=== PATIENT | male | born 2005 | race Hispanic/Latino ===

== ENCOUNTER 2024-05-09 16:32 | Emergency (ER) | payer MEDICAID, OTHER ==
[~2024-05-09] VITALS: Ht 165.1 cm; Wt 68.0 kg
[2024-05-09 16:36] VITALS: BP 116/75; PULSE 90; RESP 18
== END 2024-05-09 17:10 | disposition left against medical advice (07) ==
LOC: EDH 16:32
DX: Z66 Do not resuscitate (principal); Z53.21 Procedure and treatment not carried out due to patient leaving prior to being seen by health care provider

== ENCOUNTER 2024-11-08 08:38 | Emergency (ER) | payer BC, MEDICAID ==
[~2024-11-08] VITALS: Ht 165.1 cm; Wt 67.1 kg
[2024-11-08 09:11] LABS: RAPID GROUP A STREP negative (NEGATIVE)
[2024-11-08 09:19] LABS: APPEARANCE,URINE CLOUDY (CLEAR); BILIRUBIN,URINE 0.5 mg/dL (NEGATIVE); COLOR,URINE YELLOW (YELLOW); GLUCOSE, URINE (UA) NEGATIVE (NEGATIVE); KETONES,URINE 100 mg/dL (NEGATIVE); LEUKOCYTE ESTERASE ,URINE NEGATIVE Leu/uL (NEGATIVE); NITRATE,URINE NEGATIVE (NEGATIVE); OCCULT BLOOD,URINE NEGATIVE (NEGATIVE); PROTEIN,URINE 100 mg/dL (NEGATIVE); UROBILINOGEN,URINE 3 mg/dL (0.2-1.0)
[2024-11-08 09:22] LABS: ADD UA MICROSCOPIC YES
[2024-11-08 09:26] LABS: INFLUENZA TYPE B Negative For Type B (NEGATIVE)
[2024-11-08 09:35] LABS: COVID19 (SARS ANTIGEN RAPID) PRESUMPTIVE NEGATIVE (NEGATIVE)
[2024-11-08 09:38] LABS: INFLUENZA TYPE A Positive For Type A (NEGATIVE)
[2024-11-08 09:48] LABS: BACTERIA,URINE RARE /HPF (None Seen); MUCUS,URINE MOD LPF (None Seen); SQUAMOUS EPITHELIAL CELL,UR RARE /HPF (0-2)
[2024-11-08] MEDS: OSELTAMIVIR PHOSPHATE 75 MG CAP PO ONE (10:02)
--- NOTE | 2024-11-08 10:09 | ERN ---
ED Note History of Present Illness Stated Complaint: VOMITING Chief Complaint: Nausea,Vomiting,Diarrhea Time Seen by MD: 10:04 Dictation: PATIENT IS A 18-YEAR-OLD MALE COMING IN TODAY WITH FLU-LIKE SYMPTOMS TO INCLUDE FEVER CHILLS NO LOSS OF TASTE OR SMELL, NO NAUSEA VOMITING ONSET ONE WEEK AGO. HE SAID HE HAS HAD BODY ACHES WITH MILD SORE THROAT. NO COUGH NO PRIMARY CARE DOCTOR AND DID NOT GO SEE ANYBODY UNTIL TODAY BECAUSE HE COULD NOT GET A RIDE TO THE HOSPITAL. Allergies: Coded Allergies: No Known Drug Allergies (Unverified Allergy, Unknown, 05/09/24) Past Medical History Past Medical History: No Pertinent History Surgical History: None RN Note Reviewed/Agreed w/PFSH: Yes Review of System Dictation CONSTITUTIONAL: NEGATIVE EXCEPT FOR HPI FEVER CHILLS HEAD/FACE: NEGATIVE EXCEPT FOR HPI EENT: NEGATIVE EXCEPT FOR HPI CLEAR RHINITIS WITH SORE THROAT RESPIRATORY: NEGATIVE EXCEPT FOR HPI GASTROINTESTINAL/ABDOMINAL: NEGATIVE EXCEPT FOR HPI GENITOURINARY: NEGATIVE EXCEPT FOR HPI MUSCULOSKELETAL: NEGATIVE EXCEPT FOR HPI MALAISE INTEGUMENTARY: NEGATIVE EXCEPT FOR HPI NEUROLOGICAL/PSYCH: NEGATIVE EXCEPT FOR HPI HEMATOLOGIC/LYMPHATIC: NEGATIVE EXCEPT FOR HPI ALL SYSTEMS NEGATIVE, EXCEPT NOTED ABOVE. 13 POINT REVIEW OF SYSTEMS ASSESSED AND ALL NEGATIVE EXCEPT FOR ABOVE. Initial Vital Sign VS Vital Signs Date Time Temp Pulse Resp B/P (MAP) Pulse Ox O2 Delivery O2 Flow Rate FiO2 11/08/24 08:39 98.2 106 18 131/77 98 Room Air 0 11/08/24 08:41 21 Physical Exam Dictation VITAL SIGNS REVIEWED GENERAL APPEARANCE: ALERT, ORIENTED X 3, NO ACUTE DISTRESS, WELL DEVELOPED, NOURISHED. HEAD AND FACE: NON-TRAUMATIC. EYES: PERRL, PINK CONJUNCTIVAS, EYELID NO TRAUMA, ANTERIOR CHAMBER WITH ARCUS SENILIS. EARS: PINNAS INTACT AND NO SIGNS OF TRAUMA OR ERYTHEMA EAR CANALS CLEAR AND NO DISCHARGE TM NO ERYTHEMA NOSE: CLEAR DISCHARGE, NO BLEEDING. OROPHARYNX: MOUTH NORMAL, TONGUE PINK, PHARYNX CLEAR, MILD PHARYNGEAL ERYTHEMA, TONSILS NO EXUDATES, NO ABSCESSES NOTED, MUCOUS MEMBRANE MOIST UVULA MIDLINE, VOICE IS CLEAR. NECK: SUPPLE, NON-TENDER, NO THYROMEGALY, NO MASSES, NO JVD, NO BRUITS BREAST:DEFERRED CHEST:NO TENDERNESS, NO CREPITUS, NO PARADOXICAL MOVEMENT, NO RETRACTIONS LUNGS:CLEAR, WELL-VENTILATED, SYMMETRIC, NO RALES, NO WHEEZING, NO RHONCHI, NO STRIDOR, GOOD BREATH SOUNDS BILATERALLY HEART: REGULAR RATE, REGULAR RHYTHM, NO MURMUR, NO GALLOPS VASCULAR: NO PERIPHERAL EDEMA, ABDOMEN: SOFT, POSITIVE BOWEL SOUNDS, NONDISTENDED, NO GUARDING, NONTENDER, NO REBOUND, NO MASSES NO HEPATOMEGALY, NO SPLENOMEGALY, NO CASTRO'S SIGN, NO HERNIAS. RECTAL: DEFERRED GENITAL: DEFERRED NEUROLOGICAL: NORMAL SPEECH, MOTOR FUNCTION INTACT, SENSORY FUNCTION INTACT MUSCULOSKELETAL: NECK NONTENDER, FULL RANGE OF MOTION, BACK NONTENDER, FULL RANGE OF MOTION, EXTREMITIES: NONTENDER, FULL RANGE OF MOTION SKIN: COLOR PINK, DRY, NO TURGOR, NO RASH, NO LACERATIONS, NO ABRASIONS, NO CONTUSIONS. LYMPHATIC: DEFERRED Results (Laboratory/Radiology) Laboratory/Radiology Laboratory Tests Test 11/08/24 08:53 11/08/24 08:55 Influenza Type A Antigen Positive For Type A Influenza Type B Antigen Negative For Type B SARS-CoV-2 Antigen (Rapid) PRESUMPTIVE NEGATIVE Group A Streptococcus Rapid negative (NEGATIVE) Urine Color YELLOW (YELLOW) Urine Appearance CLOUDY (CLEAR) H Urine pH 6.0 (5.0-8.0) Urine Specific [place] 1.036 (1.001-1.031) Urine Protein 100 mg/dL (NEGATIVE) H Urine Glucose (UA) NEGATIVE mg/dL (NEGATIVE) Urine Ketones 100 mg/dL (NEGATIVE) H Urine Occult Blood NEGATIVE (NEGATIVE) Urine Nitrate NEGATIVE (NEGATIVE) Urine Bilirubin 0.5 mg/dL (NEGATIVE) H Urine Urobilinogen 3 mg/dL (0.2-1.0) H Urine Leukocyte Esterase NEGATIVE Tiana/uL Urine RBC 2-5 /HPF (0-1) H Urine WBC 2-5 /HPF (0-1) H Urine Squamous Epithelial Cells RARE /HPF (0-2) Urine Bacteria RARE /HPF (None Seen) Labs Reviewed?: Yes ED Course ED Course Orders Procedure Category Date Status Time Rapid (Group A Strep) LAB 11/08/24 Complete 08:50 Influenza Type A & B, LAB 11/08/24 Complete Rapid 08:50 Covid19 (Sars Antigen LAB 11/08/24 Complete Rapid) 08:50 Urinalysis Profile LAB 11/08/24 Complete 08:50 Oseltamivir Phosphate PHA 11/08/24 Complete (Tamiflu) 10:00 Current Medications Medications (Trade) Dose Ordered Sig/Kevin Route PRN Reason Start Time Stop Time Status Last Admin Dose Admin Oseltamivir Phosphate (Tamiflu) 75 mg ONCE ONCE PO 11/08/24 10:00 11/08/24 10:01 DC 11/08/24 10:02 Vital Signs Date Time Temp Pulse Resp B/P (MAP) Pulse Ox O2 Delivery O2 Flow Rate FiO2 11/08/24 08:41 98.2 106 18 131/77 98 Room Air* 0 21 11/08/24 08:39 98.2 106 18 131/77 98 Room Air 0 TEN 40, PATIENT POSITIVE FOR INFLUENZA A TAMIFLU INITIATED WE WILL BE DISCHARGED HOME Medical Decision Making MDM MEDICAL DECISION-MAKING BASED ON SWABS FOR FLU COVID AND STREP. PATIENT POSITIVE FOR INFLUENZA A, TAMIFLU INITIATED DISCHARGED HOME WITH PRESCRIPTIONS AND INSTRUCTIONS FOR FLU MANAGEMENT DX & DISP Disposition: Discharge Departure Impression: Primary Impression: Influenza A Additional Impression: Fever Condition: Stable Scripts Oseltamivir Phosphate (Tamiflu) 75 Mg Cap 75 MG PO BID for 5 Days, #10 CAP Prov: JENNY CARLIN NP 11/08/24 Additional Instructions: FOLLOW-UP WITH PRIMARY CARE PROVIDER IN 1 TO 2 DAYS. TAKE MEDICATIONS DIRECTED HERE IN THE EMERGENCY ROOM. OKAY TO CONTINUE HOME MEDICATIONS UNLESS OTHERWISE DISCUSSED DURING YOUR VISIT IN THE EMERGENCY ROOM TODAY. RETURN TO YOUR NEAREST EMERGENCY ROOM IF SYMPTOMS WORSEN OR IF THERE IS NO IMPROVEMENT. CALL 911 IF YOU NEED IMMEDIATE ASSISTANCE. TAKE TYLENOL OR MOTRIN [id number] NEEDED AND IF NO CONTRAINDICATIONS ARE PRESENT. INCREASE ORAL HYDRATION. A WOUND CULTURE OR URINE CULTURE WAS ORDERED HERE IN THE EMERGENCY ROOM DEPARTMENT PLEASE FOLLOW-UP WITH PRIMARY CARE PROVIDER AND ADVISE THEM TO GET REPEAT PORTS FROM OUR FACILITY. IF YOU HAD ANY BHUMIKA WRAP/SPLINTS THAT WERE APPLIED HERE, PLEASE DO NOT REMOVE THEM UNTIL YOU SEE YOUR PRIMARY CARE OR SPECIALTY. TAKE TAMIFLU DIRECTED UNTIL GONE., INCREASE YOUR FLUID INTAKE. SEE YOUR PRIMARY CARE DOCTOR IN 1-2 DAYS FOR FOLLOW UP AND MANAGEMENT. Referrals: SAGE SANCHEZ M.D. (PCP) Time of Disposition: 10:44 I have reviewed the case, and I agree with, Diagnosis and Plan JENNY CARLIN NP Nov 08, 2024 10:09
[2024-11-08] MEDS ORDERED: OSEL75 PO (10:44)
[2024-11-08 11:17] VITALS: BP 131/62; PULSE 90; RESP 14; TEMP 99.9; O2SAT 97
== END 2024-11-08 11:23 | disposition home or self-care (01) ==
LOC: EDH 08:38
DX: J10.1 Influenza due to other identified influenza virus with other respiratory manifestations (principal); R50.9 Fever, unspecified; Z20.822 Contact with and (suspected) exposure to COVID-19
CPT/HCPCS: 81001; 87426; 87804; 87880; 99283

== ENCOUNTER 2025-11-09 00:49 | Emergency (ER) | payer BC, MEDICAID ==
[~2025-11-09] VITALS: Ht 167.6 cm; Wt 64.9 kg
[~2025-11-09 00:49] MED LIST: OSEL75 PO
--- NOTE | 2025-11-09 00:58 | ERN ---
General Chief Complaint: Back Pain-No Injury Stated Complaint: BACK PAIN Time Seen by MD: 00:51 History of Present Illness Initial Comments 19-year-old male otherwise healthy presents for back pain. Patient reports upper lumbar lower thoracic pain that has a sharp shooting pain that increases with certain movements and palpation. We feeling it for a few days now. 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 No neurologic deficits. No fevers Allergies: Coded Allergies: No Known Drug Allergies (Unverified Allergy, Unknown, 05/09/24) Home Meds Active Scripts Oseltamivir Phosphate (Tamiflu) 75 Mg Cap, 75 MG PO BID for 5 Days, #10 CAP Prov:JENNY CARLIN [employer] 11/08/24 Past Medical History Past Medical History: No Pertinent History Past Surgical History: None ROS Dictation CONSTITUTIONAL: No chills, no fever, no weakness, no diaphoresis, no malaise. HEAD/FACE: No signs of trauma. EENT: No eye pain, no blurred vision, no tearing, no double vision, no ear pain, no ear discharge, no nose pain, no nasal congestion, no throat pain, no throat swelling, no mouth pain. RESPIRATORY: No cough, no orthopnea, no SOB, no stridor, no wheezing. CARDIOVASCULAR: No chest pain, no edema, no palpitations, no syncope. GASTROINTESTINAL/ABDOMINAL: No abdominal pain, no constipation, no diarrhea, no nausea, no vomiting. GENITOURINARY: No abnormal discharge, no dysuria, no frequent urination, no hematuria. No complaints of pain in the genitals. MUSCULOSKELETAL: Musculoskeletal type back pain INTEGUMENTARY: No change in color, no change in hair/nails, no dryness, no lesion, no lumps, no rash. NEUROLOGICAL/PSYCH: No anxiety, not depressed, no emotional problem, no headache, no numbness, no pre-existing deficit, no history of seizures, no tremors, no weakness. HEMATOLOGIC/LYMPHATIC: Not anemic, no history of blood clots, no apparent bleeding, no bruising, glands not swollen. All Systems Negative, Except as Noted. Physical Exam Physical Exam Dictation VITAL SIGNS: Reviewed. GENERAL APPEARANCE: Alert, oriented x3, no acute distress HEAD AND FACE: Non-traumatic. EYES: PERRL, pink conjunctivas, eyelid no trauma, anterior chamber clear. EARS: Pinnas intact and no signs of trauma or erythema. Ear canals clear and no discharge. TMs no erythema. NOSE: No discharge, no bleeding. OROPHARYNX: Mouth normal, teeth no caries, tongue pink. Pharynx clear, no erythema. Tonsils no exudates, no abscesses noted. Mucous membrane moist. NECK: Supple, non-tender, no thyromegaly, no masses, no JVD, no bruits. BREAST: Deferred. CHEST: No tenderness, no crepitus, no paradoxical movement, no retractions. LUNGS: Clear, well-ventilated, symmetric, no rales, no wheezing, no rhonchi, no stridor, good breath sounds bilaterally. HEART: Regular rate, regular rhythm, no murmur, no gallops. VASCULAR: No peripheral edema. ABDOMEN: Soft, positive bowel sounds, nondistended, no guarding, nontender, no rebound, no masses no hepatomegaly, no splenomegaly, no Rae's sign, no hernias. RECTAL: Deferred. GENITAL: Deferred. NEUROLOGICAL: Normal speech, gross motor function intact, gross sensory function intact. MUSCULOSKELETAL: Neck nontender, full range of motion, back nontender, full range of motion. EXTREMITIES: Nontender, full range of motion. SKIN: Color pink, dry, no turgor, no rash, no lacerations, no abrasions, no contusions. LYMPHATICS: Deferred. MDM CC: Back pain Historian: Patient Comorbidities: None Limitations: None Differential diagnosis: Musculoskeletal type pain, neurovascular injury, cauda equina, fracture, other Vital signs are stable Clinical exam is unremarkable. No midline tenderness. Paraspinal in nature. No red flags. No anesthesias or incontinence. Ambulatory. Neurovascularly intact. Thoracic and lumbar spine x-rays per my independent interpretation show no acute fractures. Patient declined pain medications. Likely musculoskeletal back pain. We will discharge with lidocaine patches, meloxicam, Tylenol and recommend PCP follow up. ED Course Orders Procedure Category Date Status Time Lumbar Spine 2-3vws RAD 11/09/25 Taken 00:56 Thoracic Spine 3vws RAD 11/09/25 Taken 00:56 Vital Signs Date Time Temp Pulse Resp B/P (MAP) Pulse Ox O2 Delivery O2 Flow Rate FiO2 11/09/25 01:33 97.2 67 15 108/47 98 Room Air* 0 21 11/09/25 00:50 96.3 74 20 110/67 97 Room Air DX & DISP Disposition: Discharge Departure Impression: Primary Impression: Musculoskeletal back pain Condition: Stable Scripts Lidocaine (Lidocaine Pain Relief) 4 % Adh..patch 1 EACH TP BID PRN for PAIN for 10 Days, #10 ADH.PATCH Prov: LATESHA ABARCA DO 11/09/25 Meloxicam (Meloxicam) 15 Mg Tablet 15 MG PO DAILY PRN for PAIN for 10 Days, #10 TAB Prov: LATESHA ABARCA DO 11/09/25 Additional Instructions: Your symptoms are consistent with a musculoskeletal type back pain. The x-rays are unremarkable. I have prescribed meloxicam, there has been nonsteroidal anti-inflammatory pain medication. You can take this daily as needed. Do not mix with other NSAIDs such as aspirin, ibuprofen, and naproxen. I have prescribed lidocaine patches. You can apply one twice per day as needed for pain. I recommend that you take Tylenol (1000 mg)3 times a day for pain. Use a heating pad at night as needed for pain. Please follow up with the primary doctor. You may need further studies or treatment. Return to the emergency department if you have any concerning symptoms. Referrals: SAGE SANCHEZ M.D. (PCP) LATESHA ABARCA DO Nov 09, 2025 00:58
--- NOTE | 2025-11-09 01:33 | NUR ---
PT CARE ASSUMED AT THIS TIME
[2025-11-09] MEDS ORDERED: MELO-108 PO (01:48)
[2025-11-09] MEDS ORDERED: LIDO1ADH71 TP (01:48)
--- NOTE | 2025-11-09 01:49 | HMCIMG ---
EXAM: CR Thoracic Spine, 3 views. CLINICAL HISTORY: Pain. COMPARISON: None provided. FINDINGS: Thoracic alignment is within normal limits. Normal intervertebral disc spaces. Normal vertebral body heights. No acute fracture. Soft tissues are within normal limits. IMPRESSION: No acute bony changes. /[place]
[2025-11-09 02:07] VITALS: BP 113/57; PULSE 64; RESP 17; TEMP 97.1; O2SAT 97
--- NOTE | 2025-11-09 02:19 | HMCIMG ---
EXAM: CR Lumbar Spine, 3 View. CLINICAL HISTORY: upper lumbar pain COMPARISON: None provided. FINDINGS: BONES: No acute fracture or aggressively appearing osseous lesion. ALIGNMENT: Alignment is within normal limits. No significant scoliosis. Mild retrolisthesis of L5 over S1 vertebrae. DISCS / DEGENERATIVE CHANGES: The disc spaces are preserved. SOFT TISSUES: The soft tissues are unremarkable. IMPRESSION: No acute lumbar spine abnormality is evident. Grade I retrolisthesis of L5 over S1 vertebrae. /[place]
== END 2025-11-09 02:08 | disposition home or self-care (01) ==
LOC: EDH 00:49
DX: M54.6 Pain in thoracic spine (principal); M43.16 Spondylolisthesis, lumbar region; M43.17 Spondylolisthesis, lumbosacral region
CPT/HCPCS: 72072; 72100; 99284